=== PATIENT | male | born 1990 | race Caucasian/White ===

== ENCOUNTER 2022-03-31 09:46 | Emergency (ER) | payer BC ==
[2022-03-31 10:31] VITALS: BP 132/72; PULSE 67; RESP 18; TEMP 98.2; BMI 32.1
== END 2022-03-31 10:15 | disposition home or self-care (01) ==
LOC: FER 09:46
DX: R05.1 Acute cough (principal); J02.9 Acute pharyngitis, unspecified
CPT/HCPCS: 0241U-QW; 99283-25